=== PATIENT | female | born 1965 | race Caucasian/White ===

== ENCOUNTER 2018-09-24 06:13 | Day surgery (SDC) | payer OTHER ==
[~2018-09-24] VITALS: Ht 170.2 cm; Wt 93.6 kg
[2018-09-24] MEDS ORDERED: NO ACTIVE MEDS (07:07)
[2018-09-24 07:08] VITALS: Ht 170.2 cm; Wt 93.6 kg
[2018-09-24 07:53] VITALS: BP 118/64; PULSE 67; RESP 18
[2018-09-24] MEDS ORDERED: MIDAZOLAM 1 MG/ML 2 ML INJ ONE ×2 (08:50)
[2018-09-24] MEDS ORDERED: FENTAnyl 50 MCG/ML VIAL ONE (08:50)
== END 2018-09-24 12:25 | disposition home or self-care (01) ==
LOC: GIL 06:13
PROVIDERS: ATTEND Internal Medicine Gastroenterology
DX: Z12.11 Encounter for screening for malignant neoplasm of colon (principal); K64.8 Other hemorrhoids
CPT/HCPCS: 84703; J2250; J3010